=== PATIENT | male | born 2000 | race Caucasian/White ===

== ENCOUNTER 2023-04-21 12:05 | Emergency (ER) | payer BC, MEDICAID ==
[~2023-04-21] VITALS: Ht 170.2 cm; Wt 68.0 kg
[2023-04-21 12:13] VITALS: BP 147/79; PULSE 90; RESP 22; TEMP 98; O2SAT 99
[2023-04-21 15:05] VITALS: BP 147/79; PULSE 90; RESP 22; TEMP 98; O2SAT 99
== END 2023-04-21 15:00 | disposition left against medical advice (07) ==
LOC: MED 12:05
DX: F15.10 Other stimulant abuse, uncomplicated (principal); R00.2 Palpitations; F41.9 Anxiety disorder, unspecified; R06.02 Shortness of breath
CPT/HCPCS: 99281